=== PATIENT | male | born 1995 | race Caucasian/White ===

== ENCOUNTER 2018-10-27 17:09 | Emergency (ER) | payer OTHER ==
[~2018-10-27] VITALS: Ht 185.4 cm; Wt 77.1 kg
[2018-10-28] MEDS: HYDROcodone-ACET 10/325MG TAB PO ONE (04:41)
[2018-10-28 05:08] VITALS: BP 131/60
== END 2018-10-28 05:15 | disposition home or self-care (01) ==
LOC: ER 17:09
CPT/HCPCS: 29125; 73130; 73562